=== PATIENT | female | born 1990 | race African-American/Black ===

== ENCOUNTER 2022-04-16 20:11 | Emergency (ER) | payer MEDICAID ==
[~2022-04-16] VITALS: Ht 157.5 cm; Wt 77.3 kg
[2022-04-16 20:45] VITALS: BP 118/70
[2022-04-16 21:37] LABS: BASOPHILS % (AUTO) 0.3 % (0.0-2.0); EOSINOPHILS % (AUTO) 0.9 % (1.0-6.0); HEMATOCRIT 40.9 % (36-46); HEMOGLOBIN 13.7 g/dL (12.0-16.0); LYMPHOCYTES % (AUTO) 25.3 % (22.0-44.0); MEAN CORPUSCULAR HEMOGLOBIN 26.4 pg (26.0-34.0); MEAN CORPUSCULAR HGB CONC 33.5 G/dL (31.0-37.0); MEAN CORPUSCULAR VOLUME 79 fL (80-100); MONOCYTES # (AUTO) 0.7 K/uL (0.1-1.0); MONOCYTES % (AUTO) 8.7 % (2.0-9.0); NEUTROPHILS # (AUTO) 5.2 K/uL (1.8-7.7); NEUTROPHILS % (AUTO) 64.8 % (40.0-70.0); PLATELET COUNT (AUTO) 222 K/uL (150-450); RED BLOOD CELL COUNT(AUTO) 5.18 MIL/uL (4.00-5.20); RED CELL DISTRIBUTION WIDTH 14.3 % (11.5-14.5)
[2022-04-16] MEDS ORDERED: LORazepam 1 MG TABLET PO ONE (21:45)
[2022-04-16] MEDS ORDERED: HALOPERIDOL 5 MG TABLET PO ONE (21:45)
[2022-04-16 21:52] LABS: ALANINE AMINOTRANSFERASE 20 U/L (12-78); ALBUMIN 3.6 g/dL (3.4-5.0); ALKALINE PHOSPHATASE 73 U/L (46-116); ANION GAP 10 mmol/L (8-16); ASPARTATE AMINOTRANSFERASE 18 U/L (15-37); BILIRUBIN,TOTAL 0.6 mg/dL (0.1-1.0); CALCIUM, TOTAL 9.3 mg/dL (8.8-10.5); CARBON DIOXIDE 27 mmol/L (22-29); CHLORIDE 102 mmol/L (98-107); CREATININE 0.67 mg/dL (0.60-1.30); GLUCOSE,RANDOM 95 mg/dL (70-110); SODIUM SERUM 139 mmol/L (136-145); TOTAL PROTEIN, SERUM 7.7 g/dL (6.4-8.2); UREA NITROGEN, BLOOD 3 mg/dL (7-18)
[2022-04-16 21:53] LABS: GLOMERULAR FILTR. RATE CALC > 60 mL/min (>60); POTASSIUM 2.9 mmol/L (3.5-5.1)
[2022-04-16] MEDS ORDERED: POTASSIUM CHLORIDE 20 MEQ ER TABLET PO ONE (22:00)
[2022-04-16] MEDS ORDERED: HALO5TAB23 PO (23:16)
== END 2022-04-17 01:43 | disposition home or self-care (01) ==
LOC: EMS 20:14
DX: F20.9 Schizophrenia, unspecified (principal); J45.909 Unspecified asthma, uncomplicated; F12.90 Cannabis use, unspecified, uncomplicated
CPT/HCPCS: 36415; 80053; 85025; 99284; G0480

== ENCOUNTER 2022-04-17 20:01 | Inpatient (IN) | payer MEDICARE, MEDICAID ==
[~2022-04-17] VITALS: Ht 160 cm; Wt 77.8 kg
[~2022-04-17 20:01] MED LIST: HALO5TAB23 PO
[2022-04-17 21:37] LABS: BASOPHILS % (AUTO) 0.2 % (0.0-2.0); EOSINOPHILS % (AUTO) 1.4 % (1.0-6.0); HEMATOCRIT 40.6 % (36-46); HEMOGLOBIN 13.6 g/dL (12.0-16.0); LYMPHOCYTES # (AUTO) 2.1 K/uL (1.0-4.8); LYMPHOCYTES % (AUTO) 24.2 % (22.0-44.0); MEAN CORPUSCULAR HEMOGLOBIN 26.4 pg (26.0-34.0); MEAN CORPUSCULAR HGB CONC 33.5 G/dL (31.0-37.0); MEAN CORPUSCULAR VOLUME 79 fL (80-100); MONOCYTES # (AUTO) 0.6 K/uL (0.1-1.0); MONOCYTES % (AUTO) 7.3 % (2.0-9.0); NEUTROPHILS # (AUTO) 5.9 K/uL (1.8-7.7); NEUTROPHILS % (AUTO) 66.9 % (40.0-70.0); PLATELET COUNT (AUTO) 218 K/uL (150-450); RED BLOOD CELL COUNT(AUTO) 5.15 MIL/uL (4.00-5.20); RED CELL DISTRIBUTION WIDTH 14.6 % (11.5-14.5)
[2022-04-17 22:01] LABS: ALANINE AMINOTRANSFERASE 16 U/L (12-78); ALBUMIN 3.5 g/dL (3.4-5.0); ALKALINE PHOSPHATASE 72 U/L (46-116); ANION GAP 10 mmol/L (8-16); ASPARTATE AMINOTRANSFERASE 16 U/L (15-37); BILIRUBIN,TOTAL 0.5 mg/dL (0.1-1.0); CALCIUM, TOTAL 9.2 mg/dL (8.8-10.5); CARBON DIOXIDE 25 mmol/L (22-29); CHLORIDE 105 mmol/L (98-107); CREATININE 0.57 mg/dL (0.60-1.30); GLUCOSE,RANDOM 100 mg/dL (70-110); HCG,QUANTITATIVE < 1 mIU/mL (0-6); SODIUM SERUM 140 mmol/L (136-145); TOTAL PROTEIN, SERUM 7.5 g/dL (6.4-8.2); UREA NITROGEN, BLOOD 3 mg/dL (7-18)
[2022-04-17 22:08] LABS: GLOMERULAR FILTR. RATE CALC > 60 mL/min (>60); POTASSIUM 2.9 mmol/L (3.5-5.1)
[2022-04-17] MEDS ORDERED: POTASSIUM CHLORIDE 20 MEQ ER TABLET PO ONE (22:15)
[2022-04-17] MEDS ORDERED: HALOPERIDOL 5 MG TABLET PO ONE (23:30)
[2022-04-18 06:15] VITALS: BP 113/74
[2022-04-18 06:46] LABS: GLUCOMETER DEV NAME(LOC) POC.BV
[2022-04-18 08:04] VITALS: BP 115/84
[2022-04-18] MEDS ORDERED: DOCUSATE SODIUM 100 MG CAPSULE PO PRN (10:00)
[2022-04-18] MEDS ORDERED: IBUPROFEN 400 MG TABLET PO PRN (10:00)
[2022-04-18] MEDS ORDERED: LOPERAMIDE HCL 2 MG CAPSULE PO PRN (10:00)
[2022-04-18] MEDS ORDERED: NICOTINE 14 MG/24 HOUR PATCH TD PRN (10:00)
[2022-04-18] MEDS ORDERED: MAG HYDROX/AL HYDROX/SIMETH ES 30 ML SUSPENSION UDCUP PO PRN (10:00)
[2022-04-18] MEDS ORDERED: CloNIDine HCL 0.1 MG TABLET PO PRN (10:00)
[2022-04-18] MEDS ORDERED: GuaiFENesin/D-METHORPHAN [SUGAR-FREE] 200-20MG/10 ML SYRUP UDCUP PO PRN (10:00)
[2022-04-18] MEDS ORDERED: ONDANSETRON HCL 4 MG TABLET PO PRN (10:00)
[2022-04-18] MEDS ORDERED: MAGNESIUM HYDROXIDE SUSPENSION 30 ML UDCUP PO PRN (10:00)
[2022-04-18] MEDS ORDERED: ALBUTEROL SULFATE HFA 90 MCG/PUFF 8 GM INHALER IH PRN (10:00)
[2022-04-18] MEDS ORDERED: PETROLATUM,WHITE 28 GM JELLY TP PRN (10:00)
[2022-04-18] MEDS: ARIPiprazole 10 MG TABLET PO SCH (12:13)
[2022-04-18 20:06] VITALS: BP 122/67
[2022-04-19 00:17] VITALS: BP 110/76
[2022-04-19] MEDS: ACETAMINOPHEN 325 MG TABLET PO PRN ×2 (00:21→19:16)
[2022-04-19] MEDS: LORazepam 2 MG TABLET PO PRN ×2 (00:21→19:16)
[2022-04-19] MEDS: ARIPiprazole 10 MG TABLET PO SCH (08:30)
[2022-04-19 08:41] VITALS: BP 127/76
[2022-04-19 20:08] VITALS: BP 124/70
[2022-04-19 22:12] VITALS: BP 111/75
[2022-04-19] MEDS: ZOLPIDEM TARTRATE 10 MG TABLET PO PRN (22:15)
[2022-04-20 08:30] VITALS: BP 106/58
[2022-04-20] MEDS: ARIPiprazole 10 MG TABLET PO SCH (08:55)
[2022-04-20 16:11] VITALS: BP 125/79
[2022-04-20] MEDS: ZOLPIDEM TARTRATE 10 MG TABLET PO PRN (21:27)
[2022-04-20] MEDS: ACETAMINOPHEN 325 MG TABLET PO PRN (21:27)
[2022-04-21 08:30] VITALS: BP 111/63
[2022-04-21] MEDS: ARIPiprazole 10 MG TABLET PO SCH (09:24)
[2022-04-21 20:23] VITALS: BP 105/63
[2022-04-21] MEDS: ZOLPIDEM TARTRATE 10 MG TABLET PO PRN (21:06)
[2022-04-21] MEDS: ACETAMINOPHEN 325 MG TABLET PO PRN (21:06)
[2022-04-22] MEDS: ARIPiprazole 10 MG TABLET PO SCH (08:37)
[2022-04-22 09:05] VITALS: BP 114/69
[2022-04-22 20:04] VITALS: BP 120/71
[2022-04-22] MEDS: ACETAMINOPHEN 325 MG TABLET PO PRN (20:15)
[2022-04-22] MEDS: ZOLPIDEM TARTRATE 10 MG TABLET PO PRN (20:15)
[2022-04-23 08:22] VITALS: BP 104/67
[2022-04-23] MEDS: ARIPiprazole 10 MG TABLET PO SCH (09:22)
[2022-04-23 20:21] VITALS: BP 111/63
[2022-04-23] MEDS: ZOLPIDEM TARTRATE 10 MG TABLET PO PRN (20:24)
[2022-04-24 07:02] LABS: APPEARANCE,URINE CLEAR (CLEAR); BILIRUBIN,URINE NEGATIVE (NEGATIVE); GLUCOSE, URINE (UA) NEGATIVE (NEGATIVE); KETONES,URINE NEGATIVE (NEGATIVE); LEUKOCYTE ESTERASE ,URINE NEGATIVE (NEGATIVE); NITRATE,URINE NEGATIVE (NEGATIVE); OCCULT BLOOD,URINE NEGATIVE (NEGATIVE); PH,URINE 6.5 (5.0-8.0); PROTEIN,URINE NEGATIVE (NEGATIVE); SPECIFIC GRAVITIY, URINE 1.012 (1.003-1.030); UROBILINOGEN,URINE <=1.0 mg/dL (<=1.0)
[2022-04-24 07:12] LABS: BACTERIA,URINE None Seen /HPF (None Seen); RBC,URINE None Seen /HPF (0-2); WBC,URINE None Seen /HPF (0-5)
[2022-04-24 07:18] LABS: AMPHET/METH SCREEN,URINE NEGATIVE (NEGATIVE); BARBITURATE SCREEN, URINE NEGATIVE (NEGATIVE); BENZODIAZEPINES SCREEN,URINE NEGATIVE (NEGATIVE); CANNABINOID SCREEN,URINE NEGATIVE (NEGATIVE); COCAINE SCREEN,URINE NEGATIVE (NEGATIVE); METHADONE SCREEN, URINE NEGATIVE (NEGATIVE); OPIATE SCREEN,URINE NEGATIVE (NEGATIVE)
[2022-04-24 07:25] LABS: PHENCYCLIDINE SCREEN,URINE NEGATIVE (NEGATIVE)
[2022-04-24 08:16] VITALS: BP 108/68
[2022-04-24] MEDS: ARIPiprazole 10 MG TABLET PO SCH (08:34)
[2022-04-24 20:04] VITALS: BP 127/74
[2022-04-24] MEDS: ZOLPIDEM TARTRATE 10 MG TABLET PO PRN (20:42)
[2022-04-25] MEDS: ARIPiprazole 10 MG TABLET PO SCH (08:25)
[2022-04-25 09:51] VITALS: BP 106/56
[2022-04-25] MEDS: ZOLPIDEM TARTRATE 10 MG TABLET PO PRN (20:13)
[2022-04-25 20:32] VITALS: BP 116/70
[2022-04-26 00:25] LABS: GLUCOMETER DEV NAME(LOC) POC.BV
[2022-04-26 08:03] VITALS: BP 106/61
[2022-04-26] MEDS: ARIPiprazole 10 MG TABLET PO SCH (08:38)
[2022-04-26] MEDS: ACETAMINOPHEN 325 MG TABLET PO PRN ×2 (12:45→20:56)
[2022-04-26 20:08] VITALS: BP 129/84
[2022-04-26] MEDS: ZOLPIDEM TARTRATE 10 MG TABLET PO PRN (20:56)
[2022-04-27] MEDS: ACETAMINOPHEN 325 MG TABLET PO PRN (04:37)
[2022-04-27] MEDS: ARIPiprazole 10 MG TABLET PO SCH (08:14)
[2022-04-27 09:20] VITALS: BP 112/65
[2022-04-27 20:22] VITALS: BP 106/64
[2022-04-27] MEDS: ZOLPIDEM TARTRATE 10 MG TABLET PO PRN (21:21)
[2022-04-28 08:23] VITALS: BP 120/70
[2022-04-28] MEDS: ARIPiprazole 10 MG TABLET PO SCH (09:12)
[2022-04-28 19:33] VITALS: BP 128/77
[2022-04-28] MEDS: ZOLPIDEM TARTRATE 10 MG TABLET PO PRN (20:26)
[2022-04-28 20:34] VITALS: BP 128/77
[2022-04-29] MEDS: ARIPiprazole 10 MG TABLET PO SCH (08:13)
[2022-04-29] MEDS: LORazepam 2 MG TABLET PO PRN ×3 (08:23→20:52)
[2022-04-29] MEDS: HALOPERIDOL 5 MG TABLET PO PRN ×3 (08:23→20:52)
[2022-04-29 08:45] VITALS: BP 116/60
[2022-04-29 20:16] VITALS: BP 115/81
[2022-04-30] MEDS: LORazepam 2 MG TABLET PO PRN ×2 (08:18→17:53)
[2022-04-30] MEDS: HALOPERIDOL 5 MG TABLET PO PRN ×2 (08:18→17:54)
[2022-04-30] MEDS: ARIPiprazole 15 MG TABLET PO SCH (08:18)
[2022-04-30 08:54] VITALS: BP 101/47
[2022-04-30 21:23] VITALS: BP 114/82
[2022-04-30] MEDS: ZOLPIDEM TARTRATE 10 MG TABLET PO PRN (23:59)
[2022-05-01] VITALS: BP 133/79
[2022-05-01 08:17] VITALS: BP 109/60
[2022-05-01] MEDS: ARIPiprazole 15 MG TABLET PO SCH (08:37)
[2022-05-01] MEDS: HALOPERIDOL 5 MG TABLET PO PRN ×2 (11:32→17:16)
[2022-05-01] MEDS: LORazepam 2 MG TABLET PO PRN ×2 (11:32→17:16)
[2022-05-01 20:00] VITALS: BP 105/62
[2022-05-01] MEDS: ZOLPIDEM TARTRATE 10 MG TABLET PO PRN (20:41)
[2022-05-02 06:47] VITALS: BP 128/68
[2022-05-02] MEDS: ARIPiprazole 15 MG TABLET PO SCH (08:32)
[2022-05-02] MEDS: LORazepam 2 MG TABLET PO PRN ×2 (08:32→14:06)
[2022-05-02] MEDS: HALOPERIDOL 5 MG TABLET PO PRN ×2 (08:32→14:06)
[2022-05-02 08:34] VITALS: BP 112/67
[2022-05-02 20:09] VITALS: BP 106/67
[2022-05-02] MEDS: ZOLPIDEM TARTRATE 10 MG TABLET PO PRN (20:53)
[2022-05-03 08:39] VITALS: BP 121/74
[2022-05-03] MEDS ORDERED: ARIPiprazole 10 MG TABLET PO SCH (09:00)
[2022-05-03 11:41] LABS: GLUCOMETER DEV NAME(LOC) POC.BV
[2022-05-03] MEDS: HALOPERIDOL 5 MG TABLET PO PRN ×3 (11:56→21:04)
[2022-05-03] MEDS: LORazepam 2 MG TABLET PO PRN ×2 (11:56→21:04)
[2022-05-03 20:54] VITALS: BP 112/68
[2022-05-03] MEDS: RisperiDONE 2 MG TABLET PO SCH (21:00)
[2022-05-04 08:00] VITALS: BP 102/60
[2022-05-04] MEDS: RisperiDONE 2 MG TABLET PO SCH ×2 (08:38→20:03)
[2022-05-04] MEDS: HALOPERIDOL 5 MG TABLET PO PRN ×2 (15:56→21:10)
[2022-05-04] MEDS: ZOLPIDEM TARTRATE 10 MG TABLET PO PRN (21:10)
[2022-05-05 06:24] VITALS: BP 102/60
[2022-05-05] MEDS: RisperiDONE 2 MG TABLET PO SCH ×2 (08:08→20:30)
[2022-05-05 08:27] VITALS: BP 111/76
[2022-05-05] MEDS: HALOPERIDOL 5 MG TABLET PO PRN (11:38)
[2022-05-05 20:13] VITALS: BP 112/70
[2022-05-06 02:10] VITALS: BP 125/87
[2022-05-06] MEDS: HALOPERIDOL 5 MG TABLET PO PRN ×3 (02:11→15:42)
[2022-05-06] MEDS: RisperiDONE 2 MG TABLET PO SCH ×2 (08:15→20:45)
[2022-05-06 09:20] VITALS: BP 110/69
[2022-05-06 20:37] VITALS: BP 124/69
[2022-05-06] MEDS: ZOLPIDEM TARTRATE 10 MG TABLET PO PRN (21:38)
[2022-05-07 08:10] VITALS: BP 122/78
[2022-05-07] MEDS: RisperiDONE 2 MG TABLET PO SCH ×2 (08:21→20:19)
[2022-05-07] MEDS: HALOPERIDOL 5 MG TABLET PO PRN ×3 (08:21→18:34)
[2022-05-07 20:08] VITALS: BP 108/66
[2022-05-07] MEDS: ZOLPIDEM TARTRATE 10 MG TABLET PO PRN (20:19)
[2022-05-08] MEDS: HALOPERIDOL 5 MG TABLET PO PRN ×3 (07:10→17:24)
[2022-05-08 08:00] VITALS: BP 111/74
[2022-05-08] MEDS: RisperiDONE 2 MG TABLET PO SCH ×2 (08:06→20:43)
[2022-05-08] MEDS: LORazepam 2 MG TABLET PO PRN (18:44)
[2022-05-08 18:47] VITALS: BP 122/75
[2022-05-08 20:04] VITALS: BP 114/76
[2022-05-08] MEDS: ZOLPIDEM TARTRATE 10 MG TABLET PO PRN (20:43)
[2022-05-09 04:32] VITALS: BP 135/79
[2022-05-09 08:29] VITALS: BP 107/67
[2022-05-09] MEDS: RisperiDONE 2 MG TABLET PO SCH ×2 (08:41→21:13)
[2022-05-09] MEDS: HALOPERIDOL 5 MG TABLET PO PRN ×3 (09:00→22:37)
[2022-05-09 21:01] VITALS: BP 115/82
[2022-05-09] MEDS: ZOLPIDEM TARTRATE 10 MG TABLET PO PRN (21:12)
[2022-05-09] MEDS: LORazepam 2 MG TABLET PO PRN (22:37)
[2022-05-10 00:36] LABS: GLUCOMETER DEV NAME(LOC) POC.BV
[2022-05-10 08:30] VITALS: BP 100/57
[2022-05-10] MEDS: RisperiDONE 2 MG TABLET PO SCH ×2 (08:47→21:18)
[2022-05-10] MEDS: HALOPERIDOL 5 MG TABLET PO PRN ×2 (08:47→23:53)
[2022-05-10] MEDS: LORazepam 2 MG TABLET PO PRN (17:26)
[2022-05-10] MEDS: ZOLPIDEM TARTRATE 10 MG TABLET PO PRN (21:19)
[2022-05-10 21:43] VITALS: BP 121/74
[2022-05-11 08:37] VITALS: BP 109/69
[2022-05-11] MEDS: RisperiDONE 2 MG TABLET PO SCH ×2 (10:20→20:40)
[2022-05-11] MEDS: HALOPERIDOL 5 MG TABLET PO PRN ×2 (15:32→22:53)
[2022-05-11 20:16] VITALS: BP 118/78
[2022-05-11] MEDS: ZOLPIDEM TARTRATE 10 MG TABLET PO PRN (20:40)
[2022-05-12 08:18] VITALS: BP 119/78
[2022-05-12] MEDS: RisperiDONE 2 MG TABLET PO SCH ×2 (09:11→20:05)
[2022-05-12] MEDS: LORazepam 2 MG TABLET PO PRN (14:50)
[2022-05-12] MEDS: HALOPERIDOL 5 MG TABLET PO PRN ×2 (14:50→23:41)
[2022-05-12 20:12] VITALS: BP 115/68
[2022-05-12] MEDS: ZOLPIDEM TARTRATE 10 MG TABLET PO PRN (20:20)
[2022-05-13 04:27] VITALS: BP 111/62
[2022-05-13 08:09] VITALS: BP 116/85
[2022-05-13] MEDS: RisperiDONE 2 MG TABLET PO SCH ×2 (09:21→20:10)
[2022-05-13] MEDS: HALOPERIDOL 5 MG TABLET PO PRN ×2 (09:24→16:23)
[2022-05-13 16:23] VITALS: BP 118/78
[2022-05-13] MEDS: LORazepam 2 MG TABLET PO PRN (16:23)
[2022-05-13] MEDS: ZOLPIDEM TARTRATE 10 MG TABLET PO PRN (20:10)
[2022-05-13 20:47] VITALS: BP 115/69
[2022-05-14] MEDS: LORazepam 2 MG TABLET PO PRN (08:12)
[2022-05-14] MEDS: RisperiDONE 2 MG TABLET PO SCH (08:12)
[2022-05-14 08:30] VITALS: BP 109/66
[2022-05-14] MEDS ORDERED: RisperiDONE 1 MG TABLET PO ONE (11:15)
[2022-05-14] MEDS ORDERED: LORazepam 2 MG TABLET PO PRN (12:00)
[2022-05-14] MEDS: HALOPERIDOL 5 MG TABLET PO PRN (13:15)
[2022-05-14] MEDS: RisperiDONE 3 MG TABLET PO SCH (20:01)
[2022-05-14] MEDS: ZOLPIDEM TARTRATE 10 MG TABLET PO PRN (20:01)
[2022-05-14 20:14] VITALS: BP 106/63
[2022-05-15] MEDS: HALOPERIDOL 5 MG TABLET PO PRN ×3 (04:54→19:54)
[2022-05-15 08:27] VITALS: BP 116/69
[2022-05-15] MEDS: RisperiDONE 3 MG TABLET PO SCH ×2 (09:16→20:13)
[2022-05-15 20:09] VITALS: BP 113/73
[2022-05-15] MEDS: TraZODone HCL 50 MG TABLET PO SCH (20:12)
[2022-05-16 08:28] VITALS: BP 118/70
[2022-05-16] MEDS: RisperiDONE 3 MG TABLET PO SCH ×2 (08:45→20:02)
[2022-05-16] MEDS: HALOPERIDOL 5 MG TABLET PO PRN ×2 (15:57→21:08)
[2022-05-16] MEDS: TraZODone HCL 50 MG TABLET PO SCH (20:02)
[2022-05-16 20:30] VITALS: BP 101/76
[2022-05-17 08:08] VITALS: BP 106/69
[2022-05-17] MEDS: RisperiDONE 3 MG TABLET PO SCH ×2 (10:09→20:41)
[2022-05-17] MEDS: HALOPERIDOL 5 MG TABLET PO PRN ×2 (13:59→19:09)
[2022-05-17 20:29] VITALS: BP 121/72
[2022-05-17] MEDS: TraZODone HCL 50 MG TABLET PO SCH (20:41)
[2022-05-18 08:41] LABS: GLUCOMETER DEV NAME(LOC) POC.BV
[2022-05-18 09:13] VITALS: BP 121/77
[2022-05-18] MEDS: RisperiDONE 3 MG TABLET PO SCH ×2 (10:08→20:18)
[2022-05-18 16:45] VITALS: BP 120/76
[2022-05-18 20:07] VITALS: BP 114/67
[2022-05-18] MEDS: TraZODone HCL 50 MG TABLET PO SCH (20:18)
[2022-05-19] MEDS: ACETAMINOPHEN 325 MG TABLET PO PRN (06:24)
[2022-05-19 06:25] VITALS: BP 108/87
[2022-05-19] MEDS: RisperiDONE 3 MG TABLET PO SCH ×2 (08:32→20:41)
[2022-05-19 09:29] VITALS: BP 112/71
[2022-05-19 20:07] VITALS: BP 114/64
[2022-05-19] MEDS: TraZODone HCL 50 MG TABLET PO SCH (20:41)
[2022-05-20] MEDS: RisperiDONE 3 MG TABLET PO SCH ×2 (08:56→20:22)
[2022-05-20 11:34] VITALS: BP 108/72
[2022-05-20] MEDS: TraZODone HCL 50 MG TABLET PO SCH (20:22)
[2022-05-20 21:13] VITALS: BP 108/72
[2022-05-21 08:08] VITALS: BP 110/71
[2022-05-21] MEDS: RisperiDONE 3 MG TABLET PO SCH ×2 (08:18→20:38)
[2022-05-21] MEDS ORDERED: RISP3TAB63 PO ×2 (15:26→15:27)
[2022-05-21] MEDS ORDERED: TRAZ-252 PO (15:26)
[2022-05-21 20:33] VITALS: BP 113/69
[2022-05-21] MEDS: TraZODone HCL 50 MG TABLET PO SCH (20:38)
[2022-05-22 09:23] VITALS: BP 121/61
[2022-05-22] MEDS: RisperiDONE 3 MG TABLET PO SCH (09:48)
== END 2022-05-22 09:40 | disposition home or self-care (01) | DRG 885 ==
LOC: EMS 20:06 → B2X 04-18 05:22
PROVIDERS: ADMIT Psychiatry & Neurology Psychiatry; ATTEND Psychiatry & Neurology Psychiatry
DX: F20.0 Paranoid schizophrenia (principal); Z20.822 Contact with and (suspected) exposure to COVID-19; E87.6 Hypokalemia; G47.00 Insomnia, unspecified; J45.909 Unspecified asthma, uncomplicated; Z59.00 Homelessness unspecified; Z79.899 Other long term (current) drug therapy
CPT/HCPCS: 80053; 80307; 81001; 84132; 84702; 85025; 87081; 99285; G0480